=== PATIENT | female | born 1945 | race Hispanic/Latino ===

== ENCOUNTER 2017-10-15 06:55 | Day surgery (SDC) | payer BC ==
[2017-10-10 13:27] VITALS: BMI 30.7
[2017-10-15 07:53] LABS: BASO # 0.06 K/mm3 (0.0-2.0); BASO % 0.8 % (0.0-3.0); EOS # 0.5 (0.0-0.7); EOS % 6.2 % (1.5-5.0); GRAN # 5.23 (1.4-6.5); GRAN % 66.2 % (50.0-68.0); HEMATOCRIT 30.5 % (36.0-48.0); LYMPH # 1.1 (1.2-3.4); LYMPH % 13.7 % (22.0-35.0); MEAN CELL VOLUME 82.2 fl (80.0-105.0); MEAN CORPUSCULAR HGB CONC 34.1 g/dl (31.0-37.0); MEAN PLATELET VOLUME 8.7 fl (7.0-11.0); MONO % 13.1 % (1.0-6.0); RED CELL DISTRIBUTION WIDTH 14.2 % (11.5-14.5); WHITE BLOOD COUNT 7.9 10^3/ul (4.5-11.0)
[2017-10-15 08:00] LABS: BLOOD UREA NITROGEN 21 mg/dL (7-21); CALCIUM 9.2 mg/dL (8.4-10.5); CARBON DIOXIDE 26 mmol/L (21-33); CHLORIDE 95 mmol/L (98-107); GFR AFRICAN-AMERICAN > 60; GLUCOSE,RANDOM 116 mg/dL (70-110); POTASSIUM 4.4 mmol/L (3.6-5.0); SODIUM 128 mmol/L (132-148)
[2017-10-15 08:02] LABS: INR 1.04 (0.93-1.08)
[2017-10-15] MEDS ORDERED: Lidocaine 2% Inj (20ml) ONE (08:02)
[2017-10-15] MEDS ORDERED: Midazolam 2 MG/2 ML VIAL ONE ×3 (08:03→09:44)
[2017-10-15] MEDS ORDERED: Iodixanol 320 MG/ML 200 ML BOTTLE IV ONE (08:04)
[2017-10-15] MEDS ORDERED: Iodixanol 320 MG/ML 100 ML BOTTLE IV ONE (08:04)
[2017-10-15] MEDS ORDERED: Oxycodone/Acetaminophen 5/325 mg Tab PO PRN (10:17)
[2017-10-15] MEDS ORDERED: Morphine 4 mg/ml ISec IVP PRN ×2 (10:19→12:23)
[2017-10-15] MEDS ORDERED: Sodium Chloride 0.45% 1,000 ML IV SCH (10:30)
[2017-10-15] MEDS ORDERED: Morphine 5 MG/ML SYRINGE ONE (10:42)
[2017-10-15] MEDS ORDERED: Oxycodone/Acetaminophen 5/325 mg Tab ONE (11:43)
[2017-10-15 12:31] VITALS: RESP 18
[2017-10-15 13:42] VITALS: TEMP 97.6
[2017-10-15 14:36] VITALS: O2SAT 96
[2017-10-15 16:08] VITALS: BP 127/78; PULSE 62
--- NOTE | 2017-10-15 19:28 | VASCULAR ---
PROCEDURE: 1. Bilateral selective renal arteriograms with pressures. 2. Right renal artery angioplasty and stent placement. HISTORY: Vasculopath. Left renal artery stent and kissing iliac stents in 2008. Poorly controlled hypertension and critical right renal artery stenosis on duplex ultrasound. PHYSICIAN(S): Lupillo Carlos M.D. TECHNIQUE: The relative risks and indications of the procedure were explained to the patient and consent obtained. The patient was hydrated prior to the procedure and the appropriate labs drawn. The patient was placed supine on the arteriogram table and the right groin prepped and draped in the usual sterile fashion. Conscious sedation and monitoring were provided throughout the procedure by a nurse. Via a right common femoral artery approach, a 5 Iraqi sheath was placed in the right groin. Through the sheath and over a guidewire, a 5 Iraqi flush catheter was placed in the abdominal aorta at the level of the renal arteries and a PA DSA abdominal aortogram performed. The catheter was exchanged for a 5 Iraqi C1 catheter. Was placed in the left renal artery origin. It was somewhat difficult to cannulate given the stent. A selective DSA left renal arteriogram was performed. Pull-back pressures were obtained across the left renal artery stent. No significant systolic gradient was demonstrated. Exchange is made for a 7 Iraqi hockey stick guide catheter placed the origin of the right renal artery. A selective DSA right renal arteriogram was performed. The critical calcified stenosis at the right renal artery origin was crossed with a 0.014 guidewire. Heparin and nitroglycerin were given. The right renal artery origin was dilated with a 6 mm balloon. Next a 6 mm x 19 mm balloon expandable stent was placed the ostium of the right renal artery. The stent was post dilated with 7 mm balloon. Completion angiograms were obtained. The sheath was removed and hemostasis obtained with a Mynx device. FINDINGS: Extensive vascular calcifications noted. A balloon expandable stent is seen the origin the left renal artery. There is minimal intimal hyperplasia is seen. The left renal artery is patent. The nephrograms are symmetric. Is a 3-5 mm gradient demonstrated across the left renal artery stent. There is a critical calcified stenosis of the origin of the right renal artery. The right renal artery is otherwise normal in size. The nephrogram is symmetric. There kissing stents at the aortic bifurcation. The stents are extended into the right external iliac artery. The iliac arteries and stents are widely patent with brisk flow. IMPRESSION: 1.Severe calcified proximal right renal artery stenosis. 2. Successful angioplasty and stent placement in the right renal artery origin. 3. Patent left renal artery stent without evidence of significant re- stenosis. 4. Patent bilateral kissing iliac stents.
== END 2017-10-15 16:00 | disposition home or self-care (01) ==
LOC: SDSVAS 06:55
PROVIDERS: ATTEND Radiology Vascular & Interventional Radiology
DX: I70.1 Atherosclerosis of renal artery (principal); I10 Essential (primary) hypertension; I50.9 Heart failure, unspecified; E11.9 Type 2 diabetes mellitus without complications
CPT/HCPCS: 36252; 36415; 37236; 80048; 85025; 85610; 85730; 99152; 99153; C1725 ×2; C1760 ×3; C1769 ×2; C1876; C1887; C1894 ×2; J1644 ×2; J2250; J2270 ×2; J2405; J3010; J7030; Q9967